=== PATIENT | male | born 2000 | race Caucasian/White ===

== ENCOUNTER 2023-10-22 19:30 | Emergency (ER) | payer OTHER, SELFPAY ==
[2023-10-22 19:33] VITALS: BP 184/108
[2023-10-22 21:00] VITALS: BMI 37.2
[2023-10-22 21:56] VITALS: BP 141/84
[2023-10-22] MEDS: PERCOCET 5/325 1 TABLET PO (22:04)
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
[2023-10-22] MEDS: TORADOL 30 MG IM (22:28)
[2023-10-22 22:46] LABS: Urine Albumin Negative (Neg - Trace); Urine Bilirubin Negative (Negative); Urine Character Clear (Clear); Urine Color Yellow; Urine Glucose Negative (Negative); Urine Ketone Trace (Negative); Urine Leukocyte Negative (Negative); Urine Nitrite Negative (Negative); Urine Occult Blood Negative (Negative); Urine Specific Gravity 1.025 (<1.030); Urine Urobilinogen Negative (Neg - 1+)
== END 2023-10-23 01:14 | disposition home or self-care (01) ==
LOC: EMR 19:30
PROVIDERS: EMERGENCY PHYSICIAN Student in an Organized Health Care Education/Training Program; FAMILY PHYSICIAN Family Medicine Adult Medicine
DX: M54.50 Low back pain, unspecified (principal)
CPT/HCPCS: 99284; 96374; 72131; 81003